=== PATIENT | female | born 1985 | race African-American/Black ===

== ENCOUNTER 2023-10-12 00:22 | Emergency (ER) | payer MEDICAID ==
[~2023-10-12] VITALS: Ht 160 cm; Wt 98.0 kg
[~2023-10-12 00:22] MED LIST: NAPR-54 PO
[2023-10-12 00:58] VITALS: BP 123/78; PULSE 105; RESP 20; TEMP 98; O2SAT 98
[2023-10-12 01:09] VITALS: BP 123/78; PULSE 105; RESP 20; TEMP 98; O2SAT 98
[2023-10-12 04:25] LABS: FLU A ANTIGEN negative (NEGATIVE); FLU B ANTIGEN negative (NEGATIVE)
[2023-10-12] MEDS ORDERED: SULF-59 PO (04:34)
[2023-10-12] MEDS ORDERED: ROB PO (04:34)
== END 2023-10-12 04:58 | disposition home or self-care (01) ==
LOC: MED 00:22
DX: R30.0 Dysuria (principal); R05.9 Cough, unspecified; Z20.822 Contact with and (suspected) exposure to COVID-19; Z71.6 Tobacco abuse counseling; Z98.890 Other specified postprocedural states; Z79.899 Other long term (current) drug therapy; Z79.2 Long term (current) use of antibiotics; Z79.1 Long term (current) use of non-steroidal anti-inflammatories (NSAID)
CPT/HCPCS: 71046; 81002; 81025; 99284